=== PATIENT | male | born 1985 | race Caucasian/White ===

== ENCOUNTER 2017-03-20 21:52 | Emergency (ER) | payer OTHER | END 2017-03-20 22:23 | disposition left against medical advice (07) | LOC: EMS 21:55 | DX: H93.90 Unspecified disorder of ear, unspecified ear (principal); Z53.21 Procedure and treatment not carried out due to patient leaving prior to being seen by health care provider ==

== ENCOUNTER 2017-03-20 22:43 | Emergency (ER) | payer OTHER ==
[~2017-03-20] VITALS: Ht 177.8 cm; Wt 113.6 kg
[2017-03-21] MEDS ORDERED: CEPHALEXIN MONOHYDRATE 500 MG CAPSULE PO ONE (00:45)
[2017-03-21] MEDS ORDERED: NEOMYCIN/POLYMYXIN B/HYDROCORT 10 ML OTIC SUSPENSION AS ONE (00:45)
[2017-03-21] MEDS ORDERED: ACETAMINOPHEN/CODEINE 300-30 MG TABLET PO ONE (00:45)
[2017-03-21 00:59] VITALS: BP 140/72
== END 2017-03-21 01:01 | disposition home or self-care (01) ==
LOC: EMS 22:48
DX: H60.92 Unspecified otitis externa, left ear (principal)
CPT/HCPCS: 99284

== ENCOUNTER 2017-07-27 23:17 | Emergency (ER) | payer OTHER ==
[~2017-07-27] VITALS: Ht 175.3 cm; Wt 115.0 kg
[2017-07-28] MEDS ORDERED: IBUPROFEN 600 MG TABLET PO ONE (00:45)
[2017-07-28] MEDS ORDERED: GuaiFENesin/D-METHORPHAN [SUGAR-FREE] 200-20MG/10 ML SYRUP UDCUP PO ONE (00:45)
[2017-07-28 01:00] VITALS: BP 132/80
== END 2017-07-28 01:20 | disposition home or self-care (01) ==
LOC: EMS 23:18
DX: J40 Bronchitis, not specified as acute or chronic (principal); J02.9 Acute pharyngitis, unspecified; I10 Essential (primary) hypertension
CPT/HCPCS: 99283